=== PATIENT | female | born 1980 | race Caucasian/White ===

== ENCOUNTER 2019-12-26 12:46 | Outpatient (CLI) | payer BC, SELFPAY ==
--- NOTE | ~2019-12-26 | MR_ITS ---
EXAMINATION: MR shoulder RT wo con DATE: 12/26/2019 13:49 INDICATION: Right shoulder pain. TECHNIQUE: Magnetic resonance imaging (MRI) of the right shoulder was performed without intravenous c ontrast. Sequences included axial PD-weighted FS FSE, coronal oblique PD-weighted FS FSE and T2-weigh katya FS FSE, and sagittal oblique T2-weighted FS FSE and T1-weighted FSE. COMPARISON: None. FINDINGS: Coracoacromial arch: The acromion undersurface is curved in morphology (type II). There is mild acromioclavicular joint os teoarthritis. There is mild subacromial/subdeltoid bursitis. Rotator cuff: There is mild supraspinatus and infraspinatus tendinopathy. Teres minor tendon is normal. Subscapular is tendon is normal. No tear. There is no asymmetric fatty atrophy of the rotator cuff muscle bellies . Biceps tendon and glenoid labrum: Biceps tendon is in bicipital groove. Intra-articular biceps tendon is normal. The glenoid labrum is normal. Fluid: There is no glenohumeral joint effusion. Bones/cartilage: Glenoid cartilage is normal. Humeral head cartilage is normal. There is a benign bone island in the s capula. IMPRESSION: 1. Mild rotator cuff tendinopathy. No tear. 2. Mild subacromial/subdeltoid bursitis. 3. Mild acromioclavicular joint osteoarthritis. Reviewed, dictated and finalized at location A.
== END 2019-12-26 12:47 | disposition home or self-care (01) ==
PROVIDERS: Visit Provider Internal Medicine
DX: M19.011 Primary osteoarthritis, right shoulder (principal); M75.51 Bursitis of right shoulder
CPT/HCPCS: 73221

== ENCOUNTER → 2021-01-26 15:57 | Outpatient (CLI) | payer BC, SELFPAY ==
--- NOTE | ~2021-01-26 | MM_ITS ---
EXAMINATION: MM screening [facility] BI w [facility] HISTORY: Screening TECHNIQUE: Craniocaudal and mediolateral oblique 3-D tomosynthesis images were obtained and synthetic 2-D images were generated. CAD analysis was submitted and interpreted. COMPARISON: 08/05/2019 BREAST PARENCHYMAL COMPOSITION: There are scattered areas of fibroglandular density. FINDINGS: There are developing masses in the upper outer quadrant of the right breast the left breast is stable without evidence for malignancy. IMPRESSION: 1. Developing right breast masses. 2. Additional spot compression and mediolateral views with possible follow-up breast ultrasound recom mended. BI-RADS Category 0: Incomplete: Needs additional imaging evaluation. Reviewed, dictated and finalized at location A. IMPRESSION: 1. Developing right breast masses. 2. Additional spot compression and mediolateral views with possible follow-up b reast ultrasound recommended. BI-RADS Category 0: Incomplete: Needs additional imaging evaluation.
== END ==
PROVIDERS: Visit Provider Obstetrics & Gynecology
DX: Z12.31 Encounter for screening mammogram for malignant neoplasm of breast (principal); R92.8 Other abnormal and inconclusive findings on diagnostic imaging of breast
CPT/HCPCS: 77063; 77067

== ENCOUNTER → 2021-02-10 09:20 | Outpatient (CLI) | payer BC, SELFPAY ==
--- NOTE | ~2021-02-10 | MMUS_ITS ---
EXAMINATION: MM diagnostic mammo unilat RT, US breast RT limited HISTORY: Follow-up right breast masses TECHNIQUE: Additional 3-D tomosynthesis images of the right breast were performed and synthetic 2-D i mages were generated. CAD analysis was submitted and interpreted. High resolution Limited right breas t ultrasound was performed. COMPARISON: 01/26/2021 BREAST PARENCHYMAL COMPOSITION: Breast composed of scattered areas of fibroglandular density. FINDINGS: MAMMOGRAPHIC FINDINGS: There is a 12 mm mass in the upper central right breast anteriorly. There is a small 6 mm mass in the mid outer aspect of the right breast. No suspicious calcifications or architectural distortion. ULTRASOUND: Right breast ultrasound: At 12:00 near the arterial lobe there is a cluster of microcysts measuring u p to 11 mm cm maximum dimension, corresponding to the larger mass seen on mammography. At 8:00, 6 cm from the nipple, there are 2 adjacent cysts measuring up to 5 mm maximum dimension corresponding to t he smaller mass seen on mammography. No suspicious masses to suggest malignancy. IMPRESSION: 1. No evidence for malignancy in the right breast. Benign findings. 2. Routine yearly screening mammogram and regular clinical breast examination are recommended. BI-RADS Category 2: Benign finding(s). Reviewed, dictated and finalized at location A. IMPRESSION: 1. No evidence for malignancy in the right breast. Benign findings. 2. Routine yearly screening mammogram and regular clinical breast examination a re recommended. BI-RADS Category 2: Benign finding(s).
== END ==
PROVIDERS: Visit Provider Obstetrics & Gynecology
DX: N60.01 Solitary cyst of right breast (principal)
CPT/HCPCS: 76642; 77065

== ENCOUNTER → 2022-08-08 14:31 | Outpatient (CLI) | payer OTHER, SELFPAY ==
--- NOTE | ~2022-08-08 | MM_ITS ---
EXAMINATION: MM diagnostic [facility] HISTORY: Diffuse cystic mastopathy of unspecified breast TECHNIQUE: Craniocaudal, mediolateral, and mediolateral oblique 3-D tomosynthesis images of the breas ts were performed and synthetic 2-D images were generated. CAD analysis was submitted and interpreted . COMPARISON: 02/10/2021, 01/26/2021, 08/05/2019 BREAST PARENCHYMAL COMPOSITION: There are scattered areas of fibroglandular density. FINDINGS: No suspicious mass, calcification, or architectural distortion are identified malignancy. There has been no suspicious interval change. IMPRESSION: 1. No mammographic evidence of malignancy. 2. Recommend routine screening mammography in one year. BI-RADS Category 1: Negative Reviewed, dictated and finalized at location A. ING INSPECTOR
== END ==
PROVIDERS: PCP Internal Medicine; Visit Provider Obstetrics & Gynecology
DX: N64.89 Other specified disorders of breast (principal); N95.1 Menopausal and female climacteric states; N60.19 Diffuse cystic mastopathy of unspecified breast
CPT/HCPCS: 77062; 77066; G0279

== ENCOUNTER 2023-02-17 10:10 | Emergency (ER) | payer OTHER, SELFPAY ==
--- NOTE | ~2023-02-17 | XR_ITS ---
XR foot RT min 3V DATE: 02/17/2023 10:33 INDICATION: Tennis injury. Bruising over the fourth and fifth metatarsal bones. TECHNIQUE: 4 views COMPARISON: None FINDINGS: There is a recent nondisplaced linear oblique intra-articular fracture of the base of the f ifth metatarsal bone. No other fracture or dislocation, periosteal reaction or bone destruction is evident. IMPRESSION: Nondisplaced linear oblique intra-articular fracture of the base of the fifth metatarsal bone Reviewed, dictated and finalized at location []
[2023-02-17 10:21] VITALS: BP 142/81; PULSE 68; RESP 12; TEMP 36.4; O2SAT 100
--- NOTE | 2023-02-17 10:38 | ED.LOWEXIN ---
HPI - Extremity Injury (Lower) General Chief Complaint: Extremity Injury, Lower Stated Complaint: Right Ankle Pain Time Seen by Provider: 02/17/23 10:30 Source: patient Mode of arrival: ambulatory Limitations: no limitations History of Present Illness HPI Narrative: Patient is a 42-year-old female that presents with right foot pain after rolling foot playing tennis. Patient reports pain to lateral side of foot with increased pain walking or turning foot inward. Patient has been using ankle/foot brace, alternating ice and heat, and taking Tylenol and ibuprofen with mild relief. Patient reports mild numbness to toes along with swelling and bruising to foot. Denies hitting head with fall Related Data Home Medications Medication Instructions Recorded Confirmed omeprazole 20 mg capsule,delayed 20 mg PO DAILY 06/09/22 02/17/23 release sertraline 100 mg tablet 200 mg PO DAILY 06/09/22 02/17/23 tacrolimus 1 mg capsule, 5 mg PO Q12H 06/09/22 02/17/23 immediate-release topiramate 100 mg tablet 100 mg PO DAILY 06/09/22 02/17/23 Allergies Allergy/AdvReac Type Severity Reaction Status Date / Time No Known Allergies Allergy Verified 02/17/23 10:19 Review of Systems Review of Systems: All systems reviewed & are unremarkable except as noted in HPI and below Constitutional: Constitutional: Denies body ache(s), Denies chills, Denies fatigue, Denies fever(s), Denies headache(s), Denies malaise and Denies weakness Eyes: Eyes: Denies blurry vision, Denies irritation and Denies loss of vision ENT: Denies otalgia, Denies headache(s), Denies nasal discharge, Denies sinus pain and Denies sore throat Cardiovascular: Cardiovascular: Denies chest pain, Denies irregular heart rhythm and Denies dyspnea Respiratory: Respiratory: Denies dyspnea Gastrointestinal: Gastrointestinal: Denies abdominal pain, Denies melena, Denies hematochezia, Denies diarrhea, Denies nausea and Denies vomiting Musculoskeletal: Musculoskeletal: Reports abnormal gait, Denies back pain, Denies myalgias, Reports arthralgias and Reports numbness Integumentary/Breasts: Skin/Breast: Denies pruritus and Denies rash Neurologic: Denies headache(s), Denies loss of vision and Denies weakness Psychiatric: Psychiatric: Reports no additional psychiatric complaints Endocrine: Endocrine: Denies fatigue PMFSH Past Medical History Medical History (Updated 02/17/23 @ 10:58 by Patricia Fitch APRN) Abnormal Pap smear of cervix 01/11/2005 ASCUS (+) hpv; 02/15/06 ascus neg hpv; 03/08/10 ascus neg hpv; 05/09/11 lgsil neg hpv; 05/10/12 lgsil (+) hpv; 12/04/2012 (LGSIL); 08/11/15 wnl (+) HPV; 03/22/16 wnl (+) HPV, 08/30/2016 Ascus +hpv Anxiety and depression Breast asymmetry Dizziness Encounter for IUD insertion 06/26/07 Mirena insertion Encounter for IUD removal Herpes HPV in female Hypoglycemia IBS (irritable bowel syndrome) Low blood pressure Migraines Narcolepsy Screening mammogram, encounter for Suicide attempt 02/09/11 & 03/09/11 Trichomonas vaginalis (TV) infection 08/30/16 Surgical History Surgical History History of colposcopy with cervical biopsy 07/06/11 benign 07/03/13 atypical squamous cells, acute cervicitis 11/07/16 LGSIL, chronic cervicitis, suggest koilocytotic atypia History of elective (~12/10/97) History of endometrial ablation (10/06/11) History of tubal ligation (10/06/11) History of wisdom tooth extraction Hx of LASIK (07/12/07) Liver transplant recipient (~2011) liver failure Social History Social History (Updated 06/09/22 @ 15:06 by Ita Chung Kat) Smoking status: Never smoker Alcohol intake: never Substance use: never Substance use type: does not use Living arrangements: other Additional living arrangements comments: Occupation/Education: occupation 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
[2023-02-17] MEDS: KETOROLAC (*BKC) 60 MG/2 ML VIAL IM (10:55)
== END 2023-02-17 11:50 | disposition home or self-care (01) ==
PROVIDERS: Emergency Provider Nurse Practitioner Family; PCP Internal Medicine
DX: S92.354A Nondisplaced fracture of fifth metatarsal bone, right foot, initial encounter for closed fracture (principal); X50.9XXA Other and unspecified overexertion or strenuous movements or postures, initial encounter; Y93.73 Activity, racquet and hand sports; F41.9 Anxiety disorder, unspecified; F32.A Depression, unspecified
CPT/HCPCS: 29515; 73630; 96372; 99214; G0463; J1885

== ENCOUNTER 2023-04-20 14:16 | Outpatient (CLI) | payer OTHER, SELFPAY ==
--- NOTE | ~2023-04-20 | XR_ITS ---
EXAM: XR foot RT min 3V DATE: 04/20/2023 14:30 HISTORY: S92.351A - Displaced fracture of fifth metatarsal bone, r... . COMPARISON: 03/23/2023, 02/17/2023. FINDINGS: Normal mineralization. Redemonstration of the proximal right fifth metatarsal fracture, po rtions of the fracture line remain visible although there is evidence of interval healing change and osseous bridging. No acute fracture or dislocation. No lytic or blastic lesion. Joint spaces are main tained. No erosion or periosteal change. Soft tissues within normal limits. IMPRESSION: Evolving healing change in the left fifth proximal metatarsal fracture. Reviewed, dictated and finalized at location K. IMPRESSION: Evolving healing change in the left fifth proximal metatarsal fract ure.
== END 2023-04-20 14:17 | disposition home or self-care (01) ==
LOC: ANHIMG 14:18
PROVIDERS: PCP Internal Medicine; Visit Provider Orthopaedic Surgery
DX: S92.351D Displaced fracture of fifth metatarsal bone, right foot, subsequent encounter for fracture with routine healing (principal); X58.XXXD Exposure to other specified factors, subsequent encounter
CPT/HCPCS: 73630

== ENCOUNTER 2023-07-26 16:47 | Emergency (ER) | payer OTHER, SELFPAY ==
[2023-07-26 16:56] VITALS: BP 124/75; PULSE 62; RESP 16; TEMP 36.6; O2SAT 100
--- NOTE | 2023-07-26 17:27 | ED.EAR ---
HPI - Ear Problem General Chief complaint: Ear Stated complaint: Dizziness, Ear Ache Time Seen by Provider: 07/26/23 17:20 Source: patient and RN notes reviewed Mode of arrival: ambulatory Limitations: no limitations History of Present Illness HPI Narrative: Patient presents today with a one-week history of bilateral ear pain and pressure that has caused her to become dizzy. She also reports some nausea that started today. She has been taking Tylenol and a decongestant as well as Zofran today for nausea. Related Data Home Medications Medication Instructions Recorded Confirmed omeprazole 20 mg capsule,delayed 20 mg PO DAILY 06/09/22 07/26/23 release sertraline 100 mg tablet 200 mg PO DAILY 06/09/22 07/26/23 tacrolimus 1 mg capsule, 5 mg PO Q12H 06/09/22 07/26/23 immediate-release topiramate 100 mg tablet 100 mg PO DAILY 06/09/22 07/26/23 Allergies Allergy/AdvReac Type Severity Reaction Status Date / Time No Known Allergies Allergy Verified 07/26/23 16:58 Review of Systems Review of Systems: CONSTITUTIONAL: Denies body aches, fever, chills, or sweats. EYES: Denies visual changes, redness, or discharge. ENT: Denies rhinorrhea, congestion, sore throat. + bilateral ear pain and pressure CARDIOVASCULAR: Denies chest pain, palpitations, or edema. RESPIRATORY: Denies cough or dyspnea. GASTROINTESTINAL: Denies abdominal pain, vomiting, or diarrhea.+ nausea GENITOURINARY: Denies dysuria or hematuria. SKIN: Denies rash, itching, or wounds. MUSCULOSKELETAL: Denies back pain, joint pain, or myalgia. NEUROLOGIC: Denies headache, numbness, tingling, or weakness.+ dizziness PSYCH: Denies depression or anxiety. [facility] Past Medical History Medical History Abnormal Pap smear of cervix 01/11/2005 ASCUS (+) hpv; 02/15/06 ascus neg hpv; 03/08/10 ascus neg hpv; 05/09/11 lgsil neg hpv; 05/10/12 lgsil (+) hpv; 12/04/2012 (LGSIL); 08/11/15 wnl (+) HPV; 03/22/16 wnl (+) HPV, 08/30/2016 Ascus +hpv Anxiety and depression Breast asymmetry Dizziness Encounter for IUD insertion 06/26/07 Mirena insertion Encounter for IUD removal Herpes HPV in female Hypoglycemia IBS (irritable bowel syndrome) Low blood pressure Migraines Narcolepsy Screening mammogram, encounter for Suicide attempt 02/09/11 & 03/09/11 Trichomonas vaginalis (TV) infection 08/30/16 Surgical History Surgical History History of colposcopy with cervical biopsy 07/06/11 benign 07/03/13 atypical squamous cells, acute cervicitis 11/07/16 LGSIL, chronic cervicitis, suggest koilocytotic atypia History of elective (~12/10/97) History of endometrial ablation (10/06/11) History of tubal ligation (10/06/11) History of wisdom tooth extraction Hx of LASIK (07/12/07) Liver transplant recipient (~2011) liver failure Social History Social History Smoking status: Never smoker Alcohol intake: never Substance use: never Substance use type: does not use Lack of Transportation: No Lack of Food: Never True Current Housing: I Have Housing Concerned About Future Housing: No Difficulty Paying Gas/Electric Bills: No Difficulty Paying for Meds: No Currently Unemployed: No Education: High School Diploma/GED Difficulty w/ Childcare or Family Care: No Living arrangements: other Additional living arrangements comments: Occupation/Education: occupation 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 Please see nursing chart for further information.
== END 2023-07-26 17:34 | disposition home or self-care (01) ==
PROVIDERS: Emergency Provider Nurse Practitioner; PCP Internal Medicine
DX: H74.8X3 Other specified disorders of middle ear and mastoid, bilateral (principal); Z79.899 Other long term (current) drug therapy
CPT/HCPCS: 99213; G0463